=== PATIENT | female | born 1990 | race Caucasian/White ===

== ENCOUNTER 2025-01-07 23:45 | Emergency (ER) | payer BC, SELFPAY ==
[2025-01-08 00:51] LABS: #Basophils 0.3 thou/uL (0.0-0.2); #Eosinophils 0.1 thou/uL (0.0-0.7); #Lymphocytes 2.1 thou/uL (1.20-3.40); #Monocytes 0.7 thou/uL (0.11-0.59); #Neutrophils 10.9 thou/uL (1.40-6.50); %Basophils 2.3 % (0.0-1.0); %Eosinophils 1.0 % (0.0-10.0); %Lymphocytes 14.8 % (21.0-51.0); %Monocytes 5.2 % (0.0-10.0); %Neutrophils 76.8 % (42.0-75.0); Hematocrit 38.5 % (36.0-47.0); Hemoglobin 12.1 g/dL (12.0-16.0); Mean Corpuscular Hemoglobin 23.8 pg (27.0-31.0); Mean Corpuscular Volume 75.4 fl (78.0-98.0); Platelet Count 408 10x3/uL (130-400); Red Blood Cell (RBC) Count 5.11 mill/uL (4.20-5.40); White Blood Cell (WBC) Count 14.2 10x3/uL (4.8-10.8)
[2025-01-08 00:55] LABS: Microcytosis SLIGHT = 6-15 cells (100X) (0-5/hpf)
[2025-01-08 00:56] LABS: Platelet Adequacy Comment Appears Increased
[2025-01-08 01:00] LABS: Manual Diff?? NO
[2025-01-08 01:01] LABS: BHCG - Serum Negative (NEGATIVE)
[2025-01-08 01:02] LABS: Pregs Control Background? CLEAR/WHITE (CLR/WHITE); Pregs Control Bar Appear? YES (CONTROL BAR)
[2025-01-08 01:04] LABS: MDiff Complete? YES
[2025-01-08 01:10] LABS: ALT (SGPT) 7 U/L (Less than 34); AST (SGOT) 20 U/L (11-34); Albumin 3.7 g/dL (3.1-4.5); Alkaline Phosphatase 85 U/L (40-110); Anion Gap 16 mmol/L (10-20); BUN (Urea Nitrogen) 10 mg/dL (7.0-18.7); Bilirubin, Total 0.2 mg/dL (0.3-1.2); Calc. Creatinine Clearance 0 mL/min (70-130); Calcium 9.0 mg/dL (7.8-10.44); Carbon Dioxide 18 mmol/L (22-29); Chloride 106 mmol/L (98-107); Globulin 3.8 g/dL (2.4-3.5); Glucose 122 mg/dL (70-105); Lipase 16 U/L (8-78); Potassium 4.5 mmol/L (3.5-5.1); Sodium 135 mmol/L (136-145)
[2025-01-08 01:35] LABS: Glucose, Urine (Dipstick) Negative (Negative); Leukocyte Negative (Negative); Pregnancy Test - Urine (BHCG) Negative (Negative); Pregu Control Background? CLEAR/WHITE (CLR/WHITE); Pregu Control Bar Appear? YES (CONTROL BAR); Protein, Urine (Dipstick) Negative (Neg-Trace); Specific Gravity, Urine 1.020 (1.005-1.030)
[2025-01-08 01:38] LABS: Bacteria/HPF None Seen HPF (None Seen); CAUTI Indications for Culture Dysuria,urgency,freq; RBC/HPF None Seen HPF (0-3); WBC/HPF None Seen HPF (0-3)
[2025-01-08 01:39] LABS: Urine Culture Reflex No No
[2025-01-08 01:41] LABS: THC/Cannabinoid Screen PRELIM POSITIVE (Negative)
[2025-01-08 01:42] LABS: Cocaine Metabolite Screen Negative (Negative); Tricyclic Screen Negative (Negative)
[2025-01-08] MEDS ORDERED: Ketorolac Tromethamine 30 MG (1 mL) VIAL ONE (02:20)
[2025-01-08] MEDS ORDERED: Iopamidol 370 76% 100 ML VIAL ONE (10:28)
== END 2025-01-08 03:00 | disposition short-term general hospital (02) ==
LOC: BURERS 23:45
DX: R10.32 Left lower quadrant pain (principal); I10 Essential (primary) hypertension
CPT/HCPCS: 36415; 74177; 80053; 80306; 81001; 81025; 83690; 84703; 85025; 96374; 96375; J1630; J1885; Q9967